=== PATIENT | female | born 1990 | race African-American/Black ===

== ENCOUNTER 2018-03-25 13:32 | Emergency (ER) | payer SELFPAY ==
[2018-03-25 13:50] VITALS: BP 142/74; PULSE 96; TEMP 98.8; BMI 39.4
--- NOTE | 2018-03-25 14:25 | PDOC ---
History of Present Illness - General Chief Complaint: Cold Symptoms Stated Complaint: COLD SYMPTOMS Time Seen by Provider: 03/25/18 13:54 - History of Present Illness Initial Comments: 27-year-old female without any significant past medical history presents for evaluation of cold-like symptoms 1 month. She denies any other associated symptoms 03/25/18 14:22 Past History - Past Medical History Allergies/Adverse Reactions: Allergies Allergy/AdvReac Type Severity Reaction Status Date / Time No Known Allergies Allergy Verified 03/25/18 13:47 Home Medications: Ambulatory Orders Ondansetron [Zofran Odt -] 4 mg SL TID #30 od.tablet 05/30/16 Cetirizine HCl/Pseudoephedrine [Zyrtec-D Tablet] 1 each PO DAILY #30 tab.er.12h 03/25/18 Guaifenesin [Robitussin] 5 ml PO HS #30 ml 03/25/18 COPD: No - Suicide/Smoking/Psychosocial Hx Smoking History: Never smoked Number of Cigarettes Smoked Daily: 1 Information on smoking cessation initiated: No 'Breaking Loose' booklet given: 05/30/16 Hx Alcohol Use: No Drug/Substance Use Hx: No Substance Use Type: Marijuana Review of Systems - Review of Systems Comments:: GENERAL/CONSTITUTIONAL: [No fever or chills. No weakness. No weight change.] HEAD, EYES, EARS, NOSE AND THROAT: [No change in vision. No ear pain or discharge. No sore throat.] CARDIOVASCULAR: [No chest pain or shortness of breath.] RESPIRATORY: [+ cough, no wheezing, or hemoptysis.] GASTROINTESTINAL: [No nausea, vomiting, diarrhea or constipation. No rectal bleeding.] GENITOURINARY: [No dysuria, frequency, or change in urination.] MUSCULOSKELETAL: [No joint or muscle swelling or pain. No neck or back pain.] SKIN AND BREASTS: [No rash or easy bruising.] NEUROLOGIC: [No headache, vertigo, loss of consciousness, or loss of sensation.] PSYCHIATRIC: [No depression or anxiety.] ENDOCRINE: [No increased thirst. No abnormal weight change.] HEMATOLOGIC/LYMPHATIC: [No anemia, easy bleeding, or history of blood clots.] ALLERGIC/IMMUNOLOGIC: [No hives or skin allergy. No latex allergy.] 03/25/18 14:22 *Physical Exam - Vital Signs Last Vital Signs Temp Pulse Resp BP Pulse Ox 98.8 F 96 H 18 142/74 100 03/25/18 13:48 03/25/18 13:48 03/25/18 13:48 03/25/18 13:48 03/25/18 13:48 - Physical Exam Comments: GENERAL: [The patient is awake, alert, and fully oriented, in no acute distress. ] HEAD: [Normal with no signs of trauma.] EYES: [Pupils equal, round and reactive to light, extraocular movements intact, sclera anicteric, conjunctiva clear.] ENT: [Ears normal, nares patent, oropharynx clear without exudates. Moist mucous membranes.] NECK: [Normal range of motion, supple without lymphadenopathy, JVD, or masses.] LUNGS: [Breath sounds equal, clear to auscultation bilaterally. No wheezes, and no crackles.] HEART: [Regular rate and rhythm, normal S1 and S2 without murmur, rub or gallop. ] ABDOMEN: [Soft, nontender, normoactive bowel sounds. No guarding, no rebound. No masses.] EXTREMITIES: [Normal range of motion, no edema. No clubbing or cyanosis. No cords, erythema, or tenderness.] NEUROLOGICAL: [Cranial nerves II through XII grossly intact. Normal speech, normal gait.] PSYCH: [Normal mood, normal affect.] SKIN: [Warm, Dry, normal turgor, no rashes or lesions noted.] 03/25/18 14:23 Moderate Sedation - Procedure Monitoring Vital Signs: Vital Signs Temp Pulse Resp BP Pulse Ox 98.8 F 96 H 18 142/74 100 03/25/18 13:48 03/25/18 13:48 03/25/18 13:48 03/25/18 13:48 03/25/18 13:48 *DC/Admit/Observation/Transfer Diagnosis at time of Disposition: Seasonal allergies - Discharge Dispostion Disposition: HOME Condition at time of disposition: Stable Decision to Admit order: No - Referrals Referrals: Silverio Sanders MD [Staff Physician] - - Patient Instructions Printed Discharge Instructions: Allergic Rhinitis - Post Discharge Activity
== END 2018-03-25 14:30 | disposition home or self-care (01) ==
LOC: JERFT 13:32
DX: J30.2 Other seasonal allergic rhinitis (principal)
CPT/HCPCS: 99281-25

== ENCOUNTER 2019-01-03 13:43 | Emergency (ER) | payer SELFPAY ==
[2019-01-03 14:30] VITALS: BP 132/74; PULSE 76; TEMP 98.4; BMI 39.4
--- NOTE | 2019-01-03 15:32 | PDOC ---
History of Present Illness - General Chief Complaint: Vaginal Bleeding Stated Complaint: VAGINAL BLEEDING Time Seen by Provider: 01/03/19 14:56 History Source: Patient Exam Limitations: No Limitations - History of Present Illness Travel History: No Initial Comments: 01/03/19 15:26 28-year-old female presents to ED with late menses 6 days and this morning started with bright red vaginal bleeding with mid suprapubic cramping. Patient states was having unprotected sex unsure if she is . Patient denies discharge, urinary complaints, fever, chills or abdominal distention. Patient denies history of fibroids, endometriosis, or PCOS. Pt does state irreg menses over the last 6 months. Timing/Duration: reports: intermittent Quality: reports: mild, cramping Abdominal Pain Onset Location: reports: suprapubic Pain Radiation: reports: no radiation Activities at Onset: reports: none Aggravating Factors: improves with: None Alleviating Factors: improves with: None Past History - Travel Traveled outside of the country in the last 30 days: No Close contact w/someone who was outside of country & ill: No - Past Medical History Allergies/Adverse Reactions: Allergies Allergy/AdvReac Type Severity Reaction Status Date / Time No Known Allergies Allergy Verified 01/03/19 14:27 Home Medications: Ambulatory Orders Ondansetron [Zofran Odt -] 4 mg SL TID #30 od.tablet 05/30/16 Cetirizine HCl/Pseudoephedrine [Zyrtec-D Tablet] 1 each PO DAILY #30 tab.er.12h 03/25/18 Guaifenesin [Robitussin] 5 ml PO HS #30 ml 03/25/18 Nitrofurantoin Monohyd/M-Cryst [Macrobid -] 100 mg PO BID #14 capsule 01/03/19 COPD: No Other medical history: DENIES. - Suicide/Smoking/Psychosocial Hx Smoking History: Never smoked Number of Cigarettes Smoked Daily: 1 Information on smoking cessation initiated: No 'Breaking Loose' booklet given: 05/30/16 Hx Alcohol Use: No Drug/Substance Use Hx: No Substance Use Type: Marijuana Patient Lives Alone: Yes Lives with/in: lives alone Review of Systems - Review of Systems Able to Perform ROS?: No Is the patient limited Kyr[place]z proficient: No Constitutional: No: Symptoms Reported HEENTM: No: Symptoms Reported Respiratory: No: Symptoms reported Cardiac (ROS): No: Symptoms Reported ABD/GI: Yes: Abdominal cramping : Yes: Discharge Musculoskeletal: No: Symptoms Reported Integumentary: No: Symptoms Reported Neurological: No: Headache, Dizziness *Physical Exam - Vital Signs Last Vital Signs Temp Pulse Resp BP Pulse Ox 98.4 F 76 17 132/74 100 01/03/19 14:27 01/03/19 14:27 01/03/19 14:27 01/03/19 14:27 01/03/19 14:27 - Physical Exam General Appearance: Yes: Nourished, Appropriately Dressed. No: Apparent Distress HEENT: negative: Pale Conjunctivae Neck: positive: Normal Thyroid, Supple Respiratory/Chest: positive: Lungs Clear, Normal Breath Sounds. negative: Respiratory Distress Cardiovascular: positive: Regular Rhythm, Regular Rate. negative: Murmur Gastrointestinal/Abdominal: positive: Soft, Tenderness (mild mid suprapubic) Musculoskeletal: negative: CVA Tenderness Integumentary: positive: Normal Color, Warm, Moist Neurologic: positive: Motor Strength 5/5 (ambulatory) Moderate Sedation - Procedure Monitoring Vital Signs: Procedure Monitoring Vital Signs Temperature 98.4 F 01/03/19 14:27 Pulse Rate 76 01/03/19 14:27 Respiratory Rate 17 01/03/19 14:27 Blood Pressure 132/74 01/03/19 14:27 O2 Sat by Pulse Oximetry (%) 100 01/03/19 14:27 Medical Decision Making - Medical Decision Making 01/03/19 15:30 Chief complaint. Vaginal bleeding since 2 AM. Patient states late menses approximately 5-6 days. Patient has no medical history otherwise. Exam: patient with bright red blood noted on sanitary napkin. No clots. mid suprabic tenderness. Plan. Urinalysis urine culture beta hCG. Will determine ultrasound once results are reviewed 01/03/19 16:53 Laboratory Tests 01/03/19 01/03/19 15:30 15:30 Beta HCG, Quant < 1.0 Urine Blood 3+ H Urine Nitrite Positive Ur Leukocyte Esterase Negative Urine WBC (Auto) 4 Urine RBC (Auto) 1 Pt upon discharge mentioned low back pain x 1 week w/ no urinary complaints and attributed to menses which she has had before. Pt recommended to call in 48 hrs if s/s worsen *DC/Admit/Observation/Transfer Diagnosis at time of Disposition: UTI (urinary tract infection) - Discharge Dispostion Disposition: HOME Condition at time of disposition: Good - Prescriptions Prescriptions: Nitrofurantoin Monohyd/M-Cryst [Macrobid -] 100 mg PO BID #14 capsule - Referrals - Patient Instructions Printed Discharge Instructions: DI for Urinary Tract Infection (UTI) Additional Instructions: Take antibiotics as prescribed. Understands if your symptoms of low back pain fever, abdominal pain increased despite taking antibiotics please call back the ER so that we may consider kidney infection/pyelonephritis - Post Discharge Activity Forms/Work/School Notes: Back to Work
[2019-01-03 16:13] LABS: URINE APPEARANCE SLCLOUDY; URINE BILIRUBIN NEGATIVE (<2.0 mg/dL); URINE COLOR YELLOW; URINE GLUCOSE (UA) NEGATIVE (NEGATIVE); URINE KETONE NEGATIVE (NEGATIVE); URINE LEUK ESTERASE NEGATIVE (NEGATIVE); URINE NITRITE POSITIVE (NEGATIVE); URINE PROTEIN NEGATIVE (NEGATIVE); URINE UROBILINOGEN NEGATIVE mg/dL (0.2-1.0)
[2019-01-03 16:43] LABS: EPI CELLS RARE /HPF (FEW); URINE BACTERIA RARE /hpf (NONE SEEN); URINE MUCUS RARE
== END 2019-01-03 17:00 | disposition home or self-care (01) ==
LOC: JER 13:43
DX: N39.0 Urinary tract infection, site not specified (principal)
CPT/HCPCS: 36415; 81003; 81015; 84702; 87086; 87186; 99283-25

== ENCOUNTER 2019-04-18 18:43 | Emergency (ER) | payer SELFPAY | END 2019-04-18 22:28 | disposition home or self-care (01) | LOC: JER 18:43 → JERFT 22:28 ==

== ENCOUNTER 2019-04-21 14:24 | Emergency (ER) | payer SELFPAY ==
[2019-04-21 14:30] VITALS: BP 132/57; PULSE 64; TEMP 98.5; BMI 39.4
[2019-04-21] MEDS ORDERED: METOCLOPRAMIDE HCL INJECTION 10 MG/2 ML VIAL IVPB ONE (14:49)
[2019-04-21] MEDS ORDERED: SODIUM CHLORIDE 1,000 ML IV STA (14:49)
--- NOTE | 2019-04-21 14:56 | PDOC ---
History of Present Illness - General Chief Complaint: Nausea/Vomiting Stated Complaint: NAUSEA/VOMITING Time Seen by Provider: 04/21/19 14:34 History Source: Patient - History of Present Illness Timing/Duration: other Past History - Past Medical History Allergies/Adverse Reactions: Allergies Allergy/AdvReac Type Severity Reaction Status Date / Time No Known Allergies Allergy Verified 04/21/19 14:28 Home Medications: Ambulatory Orders Cephalexin [Keflex] 500 mg PO QID #20 capsule 04/18/19 Ondansetron [Zofran Odt -] 4 mg SL BID PRN #6 od.tablet 04/18/19 Metoclopramide HCl [Reglan] 10 mg PO Q8H #12 tablet 04/21/19 COPD: No - Suicide/Smoking/Psychosocial Hx Smoking History: Never smoked Number of Cigarettes Smoked Daily: 1 Information on smoking cessation initiated: No 'Breaking Loose' booklet given: 05/30/16 Hx Alcohol Use: No Drug/Substance Use Hx: Yes (MARIJUA[place]) Substance Use Type: Marijuana Review of Systems - Review of Systems Constitutional: Yes: Weakness. No: Chills, Fever ABD/GI: Yes: Nausea, Vomiting. No: Abdominal cramping : No: Dysuria, Flank Pain, Hematuria Musculoskeletal: No: Back Pain *Physical Exam - Vital Signs Last Vital Signs Temp Pulse Resp BP Pulse Ox 98.5 F 64 16 132/57 L 100 04/21/19 14:28 04/21/19 14:28 04/21/19 14:28 04/21/19 14:28 04/21/19 14:28 - Physical Exam General Appearance: Yes: Appropriately Dressed. No: Apparent Distress HEENT: positive: Normal Voice Neck: positive: Supple Respiratory/Chest: negative: Respiratory Distress Gastrointestinal/Abdominal: positive: Soft. negative: Tender Musculoskeletal: negative: CVA Tenderness Integumentary: positive: Dry, Warm Neurologic: positive: Fully Oriented, Alert, Normal Mood/Affect ED Treatment Course - LABORATORY CBC & Chemistry Diagram: 04/21/19 15:00 04/21/19 15:00 - RADIOLOGY Radiology Studies Ordered: Category Date Time Status TRANSVAGINAL US PREG [US] Stat Ultrasound 04/21/19 14:50 Ordered Medical Decision Making - Medical Decision Making 04/21/19 14:51 28 yo F, , ~7 weeks by dates, here w/ nausea, vomiting. Patient states she was seen in the ED for same 3 days ago. Had negative labs. Ultrasound demonstrated 6 weeks IUP with no cardiac activity detected. Patient was discharged with zofran and keflex for UTI (of note, sen on ucx). States zofran is not relieving nausea. Is able to vicente po intermittently. States she feels weak at this time. No abd pain, dysuria, vag bleed, f/c. Currently waiting for insurance to be active to see [facility]. Pt states she is not planning on keeping See exam Hyperemesis gravidarum Not improved w/ zofran No abd pain, vag bleed IUP @ 6 weeks on US 3 days ago (no cardiac activity detected) Currently on keflex for UTI (sen on ucx) Stable here and in NAD -antiemetic -IVF -labs -Rpt US today -anticipate dc w/ [facility] f/u 04/21/19 19:06 Labs only remarkable for BG of 69, improved to 89 after po intake which pt can now tolerate. US w/ ~5week IUP w/ cardiac activity noted today. UA still dirty w / more jaziel today vs prior visit. Currently taking keflex (sen on ucx). No dysuria or e/o pyelo at this time. Will have pt complete abx and f/u in [facility] clinic this week. Reasons to return d/w pt *DC/Admit/Observation/Transfer Diagnosis at time of Disposition: Hyperemesis gravidarum - Discharge Dispostion Disposition: HOME Condition at time of disposition: Improved - Prescriptions Prescriptions: Metoclopramide HCl [Reglan] 10 mg PO Q8H #12 tablet - Referrals - Patient Instructions Printed Discharge Instructions: Hyperemesis Gravidarum Additional Instructions: Take reglan as needed for nausea and stop taking the zofran Eat as soon as you feel hungry, or even before you feel hungry. Snack often and eat small meals. The best foods to eat are high in protein or carbohydrates, and low in fat. These include crackers, bread, pretzels, nuts, and low-fat yogurt. Avoid foods that are spicy, greasy, or acidic (such as oranges). Drink cold, clear beverages, such as sports drinks and ever sandrine. Avoid coffee. Also, try to drink between meals, rather than with a meal. Suck on popsicles or ever-flavored lollipops. [place] your teeth right after you eat. Avoid lying down right after you eat. Take your vitamins at bedtime with a snack, not in the morning Avoid things in your environment that upset your stomach, such as stuffy rooms, strong smells, hot places, or loud noises. Have someone make your meals for you. Wear "acupressure" bands on your wrists. These are special bands that can help with morning or motion sickness. Continue taking the keflex for your UTI Please follow [facility] at [facility] or in [facility] clinic below: Please follow-up at [facility] at [phone] Return to ED as needed - Post Discharge Activity
--- NOTE | 2019-04-21 15:03 | PDOC ---
*Physical Exam - Vital Signs Last Vital Signs Temp Pulse Resp BP Pulse Ox 98.5 F 64 16 132/57 L 100 04/21/19 14:28 04/21/19 14:28 04/21/19 14:28 04/21/19 14:28 04/21/19 14:28 ED Treatment Course - LABORATORY CBC & Chemistry Diagram: 04/21/19 15:00 04/21/19 15:00 Medical Decision Making - Medical Decision Making 04/21/19 15:03 Ms Flores is a 28 yo F, , ~7 weeks by dates, p/w nausea and vomiting. Patient states she was seen in the ED for same 3 days ago. Ultrasound demonstrated 6 weeks IUP with no cardiac activity detected. Is able to vicente po intermittently. No abd pain, dysuria, vag bleed, f/c. Hyperemesis gravidarum Pt seen by Midlevel Provider under my direct supervision Pt interviewed and examined Ancillary studies reviewed I agree with plan as outlined by Midlevel Provider 04/21/19 15:04 04/21/19 15:09 *DC/Admit/Observation/Transfer Diagnosis at time of Disposition: Hyperemesis gravidarum - Discharge Dispostion Disposition: HOME Condition at time of disposition: Improved - Prescriptions Prescriptions: Metoclopramide HCl [Reglan] 10 mg PO Q8H #12 tablet - Referrals - Patient Instructions Printed Discharge Instructions: Hyperemesis Gravidarum Additional Instructions: Take reglan as needed for nausea and stop taking the zofran Eat as soon as you feel hungry, or even before you feel hungry. Snack often and eat small meals. The best foods to eat are high in protein or carbohydrates, and low in fat. These include crackers, bread, pretzels, nuts, and low-fat yogurt. Avoid foods that are spicy, greasy, or acidic (such as oranges). Drink cold, clear beverages, such as sports drinks and ever sandrine. Avoid coffee. Also, try to drink between meals, rather than with a meal. Suck on popsicles or ever-flavored lollipops. [place] your teeth right after you eat. Avoid lying down right after you eat. Take your vitamins at bedtime with a snack, not in the morning Avoid things in your environment that upset your stomach, such as stuffy rooms, strong smells, hot places, or loud noises. Have someone make your meals for you. Wear "acupressure" bands on your wrists. These are special bands that can help with morning or motion sickness. Continue taking the keflex for your UTI Please follow [facility] at [facility] or in [facility] clinic below: Please follow-up at [facility] at [phone] Return to ED as needed - Post Discharge Activity
[2019-04-21] MEDS ORDERED: METOCLOPRAMIDE HCL INJECTION 10 MG/2 ML VIAL ONE (15:21)
[2019-04-21 15:30] LABS: BASO % 0.3 % (0-2.0); EOS % 0.3 % (0-4.5); HEMOGLOBIN 13.1 GM/dL (10.7-15.3); LYMPH % 26.3 % (8-40); MCH 30.5 pg (25.7-33.7); MCHC 33.6 g/dl (32.0-36.0); MEAN CELL VOLUME 90.7 fl (80-96); MEAN PLT VOLUME 7.7 fl (7.5-11.1); MONO % 9.8 % (3.8-10.2); NEUT % 63.3 % (42.8-82.8); WHITE BLOOD COUNT 6.4 K/mm3 (4.0-10.0)
[2019-04-21 15:41] LABS: PLATELET COUNT 233 K/MM3 (134-434)
[2019-04-21 16:28] LABS: EPI CELLS 25.4 /HPF (0-5/HPF); HYALINE CASTS 41 /lpf (0-8); URINE APPEARANCE CLOUDY; URINE BACTERIA 967.1 /hpf (NEGATIVE); URINE BILIRUBIN 1+ (NEGATIVE); URINE COLOR DK YELLOW; URINE GLUCOSE (UA) NEGATIVE (NEGATIVE); URINE KETONE 4+ (NEGATIVE); URINE LEUK ESTERASE 2+ (NEGATIVE); URINE NITRITE NEGATIVE (NEGATIVE); URINE PROTEIN 2+ (NEGATIVE); URINE RBC 4 /hpf (0-4); URINE WBC 39 /hpf (0-5)
[2019-04-21 16:35] LABS: ALBUMIN 4.1 g/dl (3.4-5.0); BILIRUBIN,TOTAL 0.9 mg/dL (0.2-1); BLOOD UREA NITROGEN 6.1 mg/dL (7-18); CALCIUM 9.3 mg/dL (8.5-10.1); CREATININE 0.9 mg/dL (0.55-1.3); POTASSIUM 3.8 mmol/L (3.5-5.1)
[2019-04-21] MEDS ORDERED: DEXTROSE 50%-WATER - 25 GM/50 ML VIAL IVPUSH ONE (16:35)
== END 2019-04-21 19:19 | disposition home or self-care (01) ==
LOC: JER 14:24
PROC: 3E033GC Introduction of Other Therapeutic Substance into Peripheral Vein, Percutaneous Approach (ICD-10-PCS; principal; 2019-04-21)
DX: O26.891 Other specified pregnancy related conditions, first trimester (principal); O21.0 Mild hyperemesis gravidarum; O23.41 Unspecified infection of urinary tract in pregnancy, first trimester; Z3A.01 Less than 8 weeks gestation of pregnancy
CPT/HCPCS: 36415; 76817-TC; 80053; 81003; 82962; 85025; 99282-25; J7030

== ENCOUNTER 2020-09-15 18:25 | Emergency (ER) | payer OTHER ==
[2020-09-15 18:39] VITALS: BP 120/81; PULSE 68; TEMP 98.3; BMI 42.0
[2020-09-15] MEDS ORDERED: SODIUM CHLORIDE 0.9% 500 ML INFUS.BAG IV ONE (19:51)
[2020-09-15 20:32] LABS: BASO % 0.4 % (0-2.0); EOS % 0.6 % (0-4.5); HEMATOCRIT 38.1 % (32.4-45.2); HEMOGLOBIN 12.7 GM/dL (10.7-15.3); MCH 30.7 pg (25.7-33.7); MCHC 33.5 g/dl (32.0-36.0); MEAN CELL VOLUME 91.7 fl (80-96); MEAN PLT VOLUME 8.2 fl (7.5-11.1); MONO % 6.5 % (3.8-10.2); NEUT % 69.5 % (42.8-82.8); PLATELET COUNT 233 K/MM3 (134-434); RBC 4.15 M/mm3 (3.60-5.2); RDW 13.4 % (11.6-15.6); WHITE BLOOD COUNT 9.3 K/mm3 (4.0-10.0)
[2020-09-15 20:51] LABS: POTASSIUM 3.7 mmol/L (3.5-5.1)
[2020-09-15 20:52] LABS: CALCIUM 9.2 mg/dL (8.5-10.1)
[2020-09-15 20:53] LABS: ALBUMIN 3.9 g/dl (3.4-5.0); BLOOD UREA NITROGEN 9.6 mg/dL (7-18)
[2020-09-15 20:58] LABS: BILIRUBIN,TOTAL 0.5 mg/dL (0.2-1); TOT PROT 7.7 g/dl (6.4-8.2)
== END 2020-09-15 23:00 | disposition home or self-care (01) ==
LOC: JER 18:25
DX: R51.9 Headache, unspecified (principal)
CPT/HCPCS: 36415; 80053; 85025; 99284-25

== ENCOUNTER 2022-12-26 07:37 | Emergency (ER) | payer OTHER ==
[2022-12-26 07:46] VITALS: BP 138/81; PULSE 98; RESP 16; TEMP 98; BMI 41.1
== END 2022-12-26 08:29 | disposition home or self-care (01) ==
LOC: JERFT 07:37 → JER 07:37 → JERFT 08:29
DX: J01.90 Acute sinusitis, unspecified (principal); H92.03 Otalgia, bilateral
CPT/HCPCS: 84703; 99283-25

== ENCOUNTER 2024-02-04 06:16 | Emergency (ER) | payer OTHER ==
[2024-02-04 06:26] VITALS: BP 160/94; PULSE 87; RESP 18; TEMP 98.2; BMI 41.1
== END 2024-02-04 08:47 | disposition home or self-care (01) ==
LOC: JER 06:16
PROC: 0H98XZZ Drainage of Buttock Skin, External Approach (ICD-10-PCS; principal; 2024-02-04)
DX: L02.32 Furuncle of buttock (principal)
CPT/HCPCS: 99283-25

== ENCOUNTER 2024-06-16 20:09 | Emergency (ER) | payer OTHER ==
[2024-06-16 20:17] VITALS: BP 130/75; PULSE 87; RESP 20; TEMP 99.3; BMI 41.1
[2024-06-16 21:14] LABS: EPI CELLS >36 /uL (0-25.1); HCG,QUALITATIVE URINE Negative; HYALINE CASTS 3 /uL (0-3.1); PH,URINE 6.5 (5.0-8.0); URINE APPEARANCE CLOUDY; URINE BACTERIA 511 /uL (0-1359); URINE BILIRUBIN NEGATIVE (NEGATIVE); URINE COLOR YELLOW; URINE GLUCOSE (UA) NEGATIVE (NEGATIVE); URINE KETONE NEGATIVE (NEGATIVE); URINE LEUK ESTERASE 1+ (NEGATIVE); URINE NITRITE NEGATIVE (NEGATIVE); URINE PROTEIN TRACE (NEGATIVE); URINE RBC 10 /uL (0-23.9); URINE UROBILINOGEN 0.2 mg/dL (0.2-1.0); URINE WBC 60 /uL (0-25.8)
[2024-06-16] MEDS ORDERED: CEPHALEXIN MONOHYDRATE 500 MG CAPSULE (UD) ONE (21:29)
[2024-06-16] MEDS: CEPHALEXIN MONOHYDRATE 500 MG CAPSULE (UD) PO ONE (21:34)
[2024-06-17 16:28] LABS: HIV INTERPRETATION NEGATIVE (NEGATIVE)
== END 2024-06-16 21:36 | disposition home or self-care (01) ==
LOC: JER 20:09
DX: N30.00 Acute cystitis without hematuria (principal)
CPT/HCPCS: 36415; 81003; 84703; 86803; 87086; 87389; 99283-25

== ENCOUNTER 2024-06-22 07:02 | Emergency (ER) | payer OTHER ==
[2024-06-22 07:22] VITALS: BP 140/76; PULSE 71; RESP 17; TEMP 98.8; BMI 41.1
[2024-06-22] MEDS ORDERED: FLUCONAZOLE 150 MG TABLET PO ONE (07:56)
[2024-06-22] MEDS: FLUCONAZOLE 150 MG TABLET PO ONE (07:58)
== END 2024-06-22 08:22 | disposition home or self-care (01) ==
LOC: JER 07:02 → JERFT 07:02
DX: B37.31 Acute candidiasis of vulva and vagina (principal); N89.8 Other specified noninflammatory disorders of vagina; L29.2 Pruritus vulvae
CPT/HCPCS: 84703; 99283-25